=== PATIENT | male | born 1935 | race Caucasian/White ===

== ENCOUNTER → 2017-12-14 | Outpatient (CLI) | payer BC ==
[~2017-12-14] MED LIST: AMLO10 PO; AMOX500 PO; AMOX875 PO; ASPI325; ASPI81CH PO; ATOR40TA PO; CLON.1 PO; GLIP5 PO; HYDACE5 PO; LAVAP17G PO; LEVSOD150 PO; LEVSOD50 PO; LOSA25 PO; LOSHYD100 PO; METO25ER PO; SPIHYD; SPIR25 PO; Synthroid/Levo0.2 MG PO; Zofran Odt4 MG SL
[2017-12-14 17:01] LABS: BASOPHILS ABSOLUTE AUTO 0.07 K/mm3 (0.00-0.23); BASOPHILS PERCENT AUTO 1 % (0-2); EOSINOPHILS ABSOLUTE AUTO 0.04 K/mm3 (0.00-0.68); EOSINOPHILS PERCENT AUTO 0 % (0-6); Hematocrit 49.4 % (37.0-53.0); Hemoglobin 16.8 g/dL (13.5-17.5); IMMATURE GRAN ABSOLUTE AUTO 0.04 K/mm3 (0.00-0.10); IMMATURE GRAN PERCENT AUTO 0 % (0-1); LYMPHOCYTES ABSOLUTE AUTO 1.52 K/mm3 (0.84-5.20); LYMPHOCYTES PERCENT AUTO 17 % (21-46); MONOCYTES ABSOLUTE AUTO 0.67 K/mm3 (0.16-1.47); MONOCYTES PERCENT AUTO 7 % (4-13); Mean Corpuscular HGB 31.6 pg (26.0-34.0); Mean Corpuscular Volume 93 fL (80-100); Mean Platelet Volume 10.8 fL (9.1-12.4); NEUTROPHILS ABSOLUTE AUTO 6.73 K/mm3 (1.96-9.15); Platelet Count 263 K/mm3 (150-400); RDW Coefficient Variation 12.3 % (11.7-14.2); RDW Standard Deviation 42.1 fL (35.1-46.3); Red Blood Cell Count 5.31 M/mm3 (4.30-5.90); White Blood Cell Count 9.07 K/mm3 (4.00-11.30)
[2017-12-14 17:02] LABS: NEUTROPHILS PERCENT AUTO 7 % (41-73)
[2017-12-14 17:11] LABS: Albumin, Blood 3.9 g/dL (3.4-5.0); Albumin/Globulin Ratio 0.8 (0.8-1.8); Bilirubin, Total 0.9 mg/dL (0.1-1.0); Bun/Creatinine Ratio 12.7 (12.0-20.0); Calcium, Blood 9.6 mg/dL (8.5-10.1); Creatinine, Blood 1.42 mg/dL (0.60-1.20); Globulin, Blood 4.8 g/dL (2.2-4.0); Total Protein, Blood 8.7 g/dL (6.4-8.2)
== END ==
LOC: LAB SHORT 16:56
PROVIDERS: Physician Assistant
DX: R11.10 Vomiting, unspecified (principal)
CPT/HCPCS: 80053; 85025

== ENCOUNTER → 2017-12-30 | Outpatient (CLI) | payer BC ==
[2017-12-30 10:06] LABS: BASOPHILS ABSOLUTE AUTO 0.08 K/mm3 (0.00-0.23); BASOPHILS PERCENT AUTO 1 % (0-2); EOSINOPHILS ABSOLUTE AUTO 0.05 K/mm3 (0.00-0.68); EOSINOPHILS PERCENT AUTO 1 % (0-6); Hematocrit 48.3 % (37.0-53.0); Hemoglobin 16.2 g/dL (13.5-17.5); IMMATURE GRAN ABSOLUTE AUTO 0.03 K/mm3 (0.00-0.10); IMMATURE GRAN PERCENT AUTO 0 % (0-1); LYMPHOCYTES ABSOLUTE AUTO 1.59 K/mm3 (0.84-5.20); LYMPHOCYTES PERCENT AUTO 20 % (21-46); MONOCYTES ABSOLUTE AUTO 0.53 K/mm3 (0.16-1.47); MONOCYTES PERCENT AUTO 7 % (4-13); Mean Corpuscular HGB 31.7 pg (26.0-34.0); Mean Corpuscular HGB Conc 33.5 g/dL (31.5-36.5); Mean Corpuscular Volume 95 fL (80-100); Mean Platelet Volume 10.9 fL (9.1-12.4); NEUTROPHILS ABSOLUTE AUTO 5.82 K/mm3 (1.96-9.15); NEUTROPHILS PERCENT AUTO 72 % (41-73); Platelet Count 249 K/mm3 (150-400); Red Blood Cell Count 5.11 M/mm3 (4.30-5.90)
[2017-12-30 10:23] LABS: Albumin, Blood 3.9 g/dL (3.4-5.0); Albumin/Globulin Ratio 0.8 (0.8-1.8); Bun/Creatinine Ratio 11.7 (12.0-20.0); Calcium, Blood 9.4 mg/dL (8.5-10.1); Creatinine, Blood 1.45 mg/dL (0.60-1.20); Globulin, Blood 4.7 g/dL (2.2-4.0); Potassium, Blood 4.2 mmol/L (3.5-5.5); Total Protein, Blood 8.6 g/dL (6.4-8.2)
== END | disposition home or self-care (01) ==
LOC: LAB EV 10:01
PROVIDERS: Physician Assistant
DX: R10.84 Generalized abdominal pain (principal)
CPT/HCPCS: 80053; 83690; 85025

== ENCOUNTER 2018-04-14 07:40 | Inpatient (IN) | payer BC, MEDICARE ==
[~2018-04-14] VITALS: Ht 182.9 cm; Wt 95.2 kg
[~2018-04-14 07:40] MED LIST changes: -ASPI81CH PO; -ATOR40TA PO; -CLON.1 PO; -GLIP5 PO; -LEVSOD50 PO; -LOSA25 PO; -METO25ER PO; -SPIR25 PO; -Synthroid/Levo0.2 MG PO
[2018-04-14] MEDS ORDERED: CLON.1 PO (08:38)
[2018-04-14] MEDS ORDERED: Synthroid/Levo0.2 MG PO (08:38)
[2018-04-14] MEDS ORDERED: LEVSOD50 PO (08:38)
[2018-04-14] MEDS ORDERED: GLIP5 PO ×2 (08:39)
[2018-04-14 08:46] LABS: BASOPHILS ABSOLUTE AUTO 0.09 K/mm3 (0.00-0.23); BASOPHILS PERCENT AUTO 1 % (0-2); EOSINOPHILS ABSOLUTE AUTO 0.05 K/mm3 (0.00-0.68); EOSINOPHILS PERCENT AUTO 1 % (0-6); Hematocrit 42.4 % (37.0-53.0); Hemoglobin 13.3 g/dL (13.5-17.5); IMMATURE GRAN ABSOLUTE AUTO 0.04 K/mm3 (0.00-0.10); IMMATURE GRAN PERCENT AUTO 1 % (0-1); LYMPHOCYTES ABSOLUTE AUTO 1.29 K/mm3 (0.84-5.20); LYMPHOCYTES PERCENT AUTO 15 % (21-46); MONOCYTES ABSOLUTE AUTO 0.65 K/mm3 (0.16-1.47); MONOCYTES PERCENT AUTO 8 % (4-13); Mean Corpuscular HGB 29.7 pg (26.0-34.0); Mean Corpuscular HGB Conc 31.4 g/dL (31.5-36.5); Mean Corpuscular Volume 95 fL (80-100); Mean Platelet Volume 11.8 fL (9.1-12.4); NEUTROPHILS ABSOLUTE AUTO 6.58 K/mm3 (1.96-9.15); NEUTROPHILS PERCENT AUTO 76 % (41-73); Platelet Count 215 K/mm3 (150-400); RDW Standard Deviation 45.1 fL (35.1-46.3); Red Blood Cell Count 4.48 M/mm3 (4.30-5.90)
[2018-04-14 09:01] LABS: Albumin, Blood 3.3 g/dL (3.4-5.0); Albumin/Globulin Ratio 0.8 (0.8-1.8); Bun/Creatinine Ratio 25.7 (12.0-20.0); Calcium, Blood 8.9 mg/dL (8.5-10.1); Creatinine, Blood 1.44 mg/dL (0.60-1.20); Globulin, Blood 4.4 g/dL (2.2-4.0); Potassium, Blood 4.7 mmol/L (3.5-5.5); Total Protein, Blood 7.7 g/dL (6.4-8.2); Troponin I 0.046 ng/mL (0.000-0.040)
[2018-04-15 05:05] LABS: Albumin, Blood 2.9 g/dL (3.4-5.0); Anion Gap 10 mmol/L (6-16); Blood Urea Nitrogen 33 mg/dL (8-24); Bun/Creatinine Ratio 23.1 (12.0-20.0); CO2, Blood 28 mmol/L (21-32); Calcium, Blood 8.6 mg/dL (8.5-10.1); Chloride, Blood 101 mmol/L (98-108); Creatinine, Blood 1.43 mg/dL (0.60-1.20); Glomerular Filtration Rate 50 (60-); Glucose, Blood 148 mg/dL (70-99); Phosphorus, Blood 3.8 mg/dL (2.5-4.9); Potassium, Blood 3.8 mmol/L (3.5-5.5); Sodium, Blood 139 mmol/L (136-145)
[2018-04-16 06:09] LABS: Bun/Creatinine Ratio 22.2 (12.0-20.0); Calcium, Blood 9.1 mg/dL (8.5-10.1); Creatinine, Blood 1.58 mg/dL (0.60-1.20); Potassium, Blood 3.7 mmol/L (3.5-5.5)
[2018-04-16] MEDS ORDERED: ASPI81CH PO (08:45)
[2018-04-16] MEDS ORDERED: ATOR40TA PO (08:45)
[2018-04-16] MEDS ORDERED: LOSA25 PO (08:46)
[2018-04-16] MEDS ORDERED: SPIR25 PO (08:47)
[2018-04-16] MEDS ORDERED: METO25ER PO (08:47)
== END 2018-04-16 12:11 | disposition home or self-care (01) | DRG 291 ==
LOC: ER 07:40 → PCU 09:54 → MEDS 12:28 → PCU 12:30 → MEDS 04-15 17:58 → ENPENDDIS 04-16 08:00 → MEDS 04-16 12:11
PROVIDERS: Emergency Medicine; Family Medicine
PROC: 5A09357 Assistance with Respiratory Ventilation, Less than 24 Consecutive Hours, Continuous Positive Airway Pressure (ICD-10-PCS; principal; 2018-04-14)
DX: I13.0 Hypertensive heart and chronic kidney disease with heart failure and stage 1 through stage 4 chronic kidney disease, or unspecified chronic kidney disease (principal); J96.01 Acute respiratory failure with hypoxia; I50.21 Acute systolic (congestive) heart failure; N18.2 Chronic kidney disease, stage 2 (mild); E11.22 Type 2 diabetes mellitus with diabetic chronic kidney disease; I27.20 Pulmonary hypertension, unspecified; E03.9 Hypothyroidism, unspecified; E66.01 Morbid (severe) obesity due to excess calories; E78.5 Hyperlipidemia, unspecified; Z68.30 Body mass index [BMI] 30.0-30.9, adult
CPT/HCPCS: 36415; 71046; 71250; 80048; 80053; 80069; 82947; 83605; 83735; 83880; 84484; 85025; 87040; 93005; 93010; 94660; 94762; 96365; 96368; 96375; 99285; C8923; C9113; J0456; J0696; J1650; J1940; J2543; J7030; J7050; Q9957

== ENCOUNTER → 2018-11-17 | Outpatient (CLI) | payer OTHER ==
[~2018-11-17] MED LIST changes: +ASPI81CH PO; +ATOR40TA PO; +CLON.1 PO; +GLIP5 PO; +LEVSOD50 PO; +LOSA25 PO; +METO25ER PO; +SPIR25 PO; +Synthroid/Levo0.2 MG PO
[2018-11-20 12:09] LABS: M-SPIKE, % Not Observed % (Not Observed); PROTEIN,TOTAL,URINE 36.4 mg/dL (Not Estab.)
== END | disposition home or self-care (01) ==
LOC: LAB SHORT 10:15 → LAB 10:15 → LAB FUT 11-14 11:30
PROVIDERS: Internal Medicine Nephrology
DX: N18.3 Chronic kidney disease, stage 3 (moderate) (principal); D63.1 Anemia in chronic kidney disease; R80.9 Proteinuria, unspecified; N25.81 Secondary hyperparathyroidism of renal origin; E55.9 Vitamin D deficiency, unspecified; E78.00 Pure hypercholesterolemia, unspecified; R76.9 Abnormal immunological finding in serum, unspecified; R94.5 Abnormal results of liver function studies; R94.6 Abnormal results of thyroid function studies; D51.8 Other vitamin B12 deficiency anemias; D52.8 Other folate deficiency anemias; D50.9 Iron deficiency anemia, unspecified
CPT/HCPCS: 84156; 84166

== ENCOUNTER → 2018-11-19 | Outpatient (CLI) | payer OTHER ==
[2018-11-19 14:10] LABS: Protein, Urine Quantitative 25.9 mg/dL (0.0-11.9)
[2018-11-19 14:23] LABS: Creatinine, Urine Random 84.7 mg/dL (27.00-270.00)
[2018-11-19 14:26] LABS: Microalb/Creat Ratio UR, Rand 177.096 mg/g (0.000-30.000)
[2018-11-21 13:41] LABS: Creatinine Urine 85.3 mg/dL (27.00-270.00)
== END ==
LOC: LAB SHORT 10:50 → LAB 10:50
PROVIDERS: Internal Medicine Nephrology
DX: N18.3 Chronic kidney disease, stage 3 (moderate) (principal); D63.1 Anemia in chronic kidney disease; R80.9 Proteinuria, unspecified; N25.81 Secondary hyperparathyroidism of renal origin; E78.00 Pure hypercholesterolemia, unspecified; R76.9 Abnormal immunological finding in serum, unspecified; R94.5 Abnormal results of liver function studies; R94.6 Abnormal results of thyroid function studies; D51.8 Other vitamin B12 deficiency anemias; D52.8 Other folate deficiency anemias; D50.9 Iron deficiency anemia, unspecified; E55.9 Vitamin D deficiency, unspecified
CPT/HCPCS: 81050; 82043; 82570; 84156

== ENCOUNTER 2019-01-23 04:56 | Emergency (ER) | payer OTHER ==
[~2019-01-23] VITALS: Ht 182.9 cm; Wt 99.8 kg
[2019-01-23] MEDS ORDERED: TORSE20 PO (05:29)
[2019-01-23] MEDS ORDERED: ATOR40TA PO (05:29)
[2019-01-23 05:51] LABS: BASOPHILS ABSOLUTE AUTO 0.05 K/mm3 (0.00-0.23); BASOPHILS PERCENT AUTO 1 % (0-2); EOSINOPHILS ABSOLUTE AUTO 0.01 K/mm3 (0.00-0.68); EOSINOPHILS PERCENT AUTO 0 % (0-6); Hematocrit 32.4 % (37.0-53.0); Hemoglobin 10.5 g/dL (13.5-17.5); IMMATURE GRAN ABSOLUTE AUTO 0.08 K/mm3 (0.00-0.10); IMMATURE GRAN PERCENT AUTO 1 % (0-1); LYMPHOCYTES ABSOLUTE AUTO 0.73 K/mm3 (0.84-5.20); LYMPHOCYTES PERCENT AUTO 10 % (21-46); MONOCYTES ABSOLUTE AUTO 0.89 K/mm3 (0.16-1.47); MONOCYTES PERCENT AUTO 12 % (4-13); Mean Corpuscular HGB 31.3 pg (26.0-34.0); Mean Corpuscular HGB Conc 32.4 g/dL (31.5-36.5); Mean Corpuscular Volume 97 fL (80-100); Mean Platelet Volume 10.8 fL (9.1-12.4); NEUTROPHILS ABSOLUTE AUTO 5.67 K/mm3 (1.96-9.15); NEUTROPHILS PERCENT AUTO 76 % (41-73); Platelet Count 182 K/mm3 (150-400); RDW Coefficient Variation 13.2 % (11.7-14.2); Red Blood Cell Count 3.35 M/mm3 (4.30-5.90); White Blood Cell Count 7.43 K/mm3 (4.00-11.30)
[2019-01-23 06:10] LABS: Albumin, Blood 3.4 g/dL (3.4-5.0); Albumin/Globulin Ratio 0.9 (0.8-1.8); Bilirubin, Total 0.6 mg/dL (0.1-1.0); Bun/Creatinine Ratio 12.6 (12.0-20.0); Calcium, Blood 8.9 mg/dL (8.5-10.1); Creatinine, Blood 1.91 mg/dL (0.60-1.20); Globulin, Blood 3.9 g/dL (2.2-4.0); Total Protein, Blood 7.3 g/dL (6.4-8.2)
[2019-01-23 06:34] LABS: Source, Urine Clean Catch
[2019-01-23 06:44] LABS: Bilirubin, Urine Neg (Neg); Blood, Urine Neg (Neg); Glucose Qualitative, Urine 3+ (Neg); Ketones, Urine Neg (Neg); Leukocyte Esterase, Urine Neg (Neg); Nitrite, Urine Neg (Neg); Protein, Urine 2+ (Neg); Urobilinogen, Urine NORM (Normal)
[2019-01-23 06:53] LABS: Appearance, Urine Clear (Clear); Bacteria Not Seen /hpf; Color, Urine Yellow (P-Yellow); Red Blood Cells, Urine Not Seen /hpf (0-2); Squamous Epithelial Cells Not Seen /hpf (Few); White Blood Cells, Urine Rare /hpf (0-5)
[2019-01-23 06:56] LABS: CPK Creatine Kinase 68 U/L (39-308); Troponin I <0.015 ng/mL (0.000-0.040)
[2019-01-23 06:58] LABS: Thyroid Stimulating Hormone 0.116 uIU/mL (0.360-4.800)
[2019-01-23 07:37] LABS: Influenza A Negative (NEGATIVE); Influenza B Negative (NEGATIVE)
[2019-01-23] MEDS ORDERED: Zofran4 MG PO (08:43)
== END 2019-01-23 09:08 | disposition home or self-care (01) ==
LOC: ER 04:56
PROVIDERS: Emergency Medicine
DX: B34.9 Viral infection, unspecified (principal); E86.0 Dehydration; I48.91 Unspecified atrial fibrillation; I10 Essential (primary) hypertension; Z79.899 Other long term (current) drug therapy; Z79.82 Long term (current) use of aspirin
CPT/HCPCS: 36415; 71046; 80053; 81001; 82550; 83880; 84443; 84484; 85025; 87804; 93005; 93010; 96361; 96374; 99284-25; J2405; J7120

== ENCOUNTER 2019-01-28 15:51 | Observation (INO) | payer OTHER ==
[~2019-01-28] VITALS: Ht 182.9 cm; Wt 99.8 kg
[~2019-01-28 15:51] MED LIST changes: -ASPI81CH PO; +Aspirin EC81 MG PO; -SPIR25 PO; +TORSE20 PO; +Zofran4 MG PO
[2019-01-28 16:53] LABS: BASOPHILS ABSOLUTE AUTO 0.04 K/mm3 (0.00-0.23); BASOPHILS PERCENT AUTO 1 % (0-2); EOSINOPHILS ABSOLUTE AUTO 0.07 K/mm3 (0.00-0.68); EOSINOPHILS PERCENT AUTO 1 % (0-6); Hematocrit 33.6 % (37.0-53.0); Hemoglobin 10.8 g/dL (13.5-17.5); IMMATURE GRAN ABSOLUTE AUTO 0.04 K/mm3 (0.00-0.10); IMMATURE GRAN PERCENT AUTO 1 % (0-1); LYMPHOCYTES ABSOLUTE AUTO 2.09 K/mm3 (0.84-5.20); LYMPHOCYTES PERCENT AUTO 27 % (21-46); MONOCYTES ABSOLUTE AUTO 0.59 K/mm3 (0.16-1.47); MONOCYTES PERCENT AUTO 8 % (4-13); Mean Corpuscular HGB 31.5 pg (26.0-34.0); Mean Corpuscular HGB Conc 32.1 g/dL (31.5-36.5); Mean Corpuscular Volume 98 fL (80-100); Mean Platelet Volume 11.3 fL (9.1-12.4); NEUTROPHILS ABSOLUTE AUTO 5.01 K/mm3 (1.96-9.15); NEUTROPHILS PERCENT AUTO 64 % (41-73); Platelet Count 225 K/mm3 (150-400); RDW Coefficient Variation 13.5 % (11.7-14.2); RDW Standard Deviation 48.7 fL (35.1-46.3); Red Blood Cell Count 3.43 M/mm3 (4.30-5.90); White Blood Cell Count 7.84 K/mm3 (4.00-11.30)
[2019-01-28 17:14] LABS: Alanine Aminotransfer (ALT/SGP 26 U/L (12-78); Albumin, Blood 3.1 g/dL (3.4-5.0); Albumin/Globulin Ratio 0.6 (0.8-1.8); Alk Phos 115 U/L (50-136); Anion Gap 6 mmol/L (6-16); Aspartate Aminotrans (AST/SGOT 24 U/L (12-37); Bilirubin, Total 0.7 mg/dL (0.1-1.0); Blood Urea Nitrogen 46 mg/dL (8-24); Bun/Creatinine Ratio 19.3 (12.0-20.0); CO2, Blood 32 mmol/L (21-32); Calcium, Blood 8.9 mg/dL (8.5-10.1); Chloride, Blood 98 mmol/L (98-108); Creatinine, Blood 2.38 mg/dL (0.60-1.20); Glomerular Filtration Rate 28 (60-); Glucose, Blood 330 mg/dL (70-99); Potassium, Blood 4.1 mmol/L (3.5-5.5); Sodium, Blood 136 mmol/L (136-145); Total Protein, Blood 8.1 g/dL (6.4-8.2); Troponin I <0.015 ng/mL (0.000-0.040)
[2019-01-28] MEDS ORDERED: SPIR25 PO (19:26)
[2019-01-28] MEDS ORDERED: ONDA4 PO (19:27)
[2019-01-28] MEDS ORDERED: PANT40 PO (19:29)
[2019-01-28] MEDS ORDERED: TAMS.4ER PO (19:30)
[2019-01-28] MEDS ORDERED: CALC.25 PO (19:30)
[2019-01-29 04:55] LABS: BASOPHILS ABSOLUTE AUTO 0.02 K/mm3 (0.00-0.23); BASOPHILS PERCENT AUTO 0 % (0-2); EOSINOPHILS PERCENT AUTO 1 % (0-6); Hematocrit 30.5 % (37.0-53.0); Hemoglobin 9.9 g/dL (13.5-17.5); Mean Corpuscular HGB Conc 32.5 g/dL (31.5-36.5); Mean Corpuscular Volume 99 fL (80-100); Mean Platelet Volume 11.4 fL (9.1-12.4); Platelet Count 208 K/mm3 (150-400); RDW Coefficient Variation 13.4 % (11.7-14.2); RDW Standard Deviation 47.9 fL (35.1-46.3); Red Blood Cell Count 3.09 M/mm3 (4.30-5.90); White Blood Cell Count 8.32 K/mm3 (4.00-11.30)
[2019-01-29 04:58] LABS: IMMATURE GRAN ABSOLUTE AUTO 0.05 K/mm3 (0.00-0.10); IMMATURE GRAN PERCENT AUTO 1 % (0-1); LYMPHOCYTES ABSOLUTE AUTO 1.97 K/mm3 (0.84-5.20); LYMPHOCYTES PERCENT AUTO 24 % (21-46); MONOCYTES ABSOLUTE AUTO 0.65 K/mm3 (0.16-1.47); MONOCYTES PERCENT AUTO 8 % (4-13); NEUTROPHILS ABSOLUTE AUTO 5.53 K/mm3 (1.96-9.15); NEUTROPHILS PERCENT AUTO 67 % (41-73)
[2019-01-29 05:14] LABS: Bun/Creatinine Ratio 19.3 (12.0-20.0); Calcium, Blood 8.4 mg/dL (8.5-10.1); Creatinine, Blood 2.18 mg/dL (0.60-1.20); Potassium, Blood 4.3 mmol/L (3.5-5.5)
--- NOTE | 2019-01-29 07:36 | NUR ---
*SHIFT SUMMARY* PATIENT IS ALERT AND ORIENTED. CAME TO ROOM FROM ER VIA STRETCHER, ON ROOM AIR. PATIENT IS HARD OF HEARING. AT BEDSIDE. PT IS 1 ASSIST WITH WALKER. VITAL SIGNS STABLE. CALL LIGHT IN REACH. BED LOWERED AND LOCKED. PT SLEPT WELL THROUGHOUT THE NIGHT.
--- NOTE | 2019-01-29 18:19 | NUR ---
SHIFT SUMMARY PATIENT A&0 X4, 1 PA TO BATHROOM. IS AT THE BEDSIDE AN DOES A LOT OF HIS CARE. PATIENT DENIES ANY PAIN OR SOB THIS SHIFT. HAD AN EPISODE OF VOMITTING THIS MORNING. RN MEDICATED X1, HAS SINCE RESOLVED. POOR APPETITE. HAS NOT WANTED TO EAT MUCH. BOWEL CARE PROVIDED THIS SHIFT. NO ACUTE CHANGES. RN WILL CONTINUE TO MONITOR.
--- NOTE | 2019-01-30 05:54 | NUR ---
*SHIFT SUMMARY* PT IS ALERT AND ORIENTED. ON ROOM AIR. HAS PRODUCTIVE COUGH, YELLOW SOMETIMES GREENISH SPUTUM. PT IS A 1 ASSIST WITH FWW TO BATHROOM. AT BEDSIDE. PT HAS SOME INCONTINENCE THROUGHOUT THE NIGHT. USES CALL LIGHT APPROPRIATELY. PLAN IS FOR SPEECH TO EVALUATE PT TODAY. NO BM REPORTED FROM PT. VITAL SIGNS STABLE.
[2019-01-30] MEDS ORDERED: Augmentin 875-1 EACH PO (14:51)
--- NOTE | 2019-01-30 16:05 | NUR ---
DISCHARGE SUMMARY PATIENT A&O X3. ALL DISCHARGE INFORMATION REVIEWED WITH PATIENT AND HIS . MEDICATIONS FAXED TO [facility] IN [place]. NO IV ACCESS. ESCORTED OUT BY TRANSPORT SPECIALIST IN WHEELCHAIR. ALL BELONINGS IN HAND.
== END 2019-01-30 15:20 | disposition home or self-care (01) ==
LOC: ER 15:51 → MEDS 15:52
PROVIDERS: Nurse Practitioner Acute Care; Physician Assistant; ADMIT Hospitalist
DX: J69.0 Pneumonitis due to inhalation of food and vomit (principal); E11.65 Type 2 diabetes mellitus with hyperglycemia; I13.0 Hypertensive heart and chronic kidney disease with heart failure and stage 1 through stage 4 chronic kidney disease, or unspecified chronic kidney disease; E11.22 Type 2 diabetes mellitus with diabetic chronic kidney disease; I50.22 Chronic systolic (congestive) heart failure; N18.3 Chronic kidney disease, stage 3 (moderate); E03.9 Hypothyroidism, unspecified; E78.5 Hyperlipidemia, unspecified; Z79.899 Other long term (current) drug therapy; Z79.82 Long term (current) use of aspirin; Z79.84 Long term (current) use of oral hypoglycemic drugs; W19.XXXA Unspecified fall, initial encounter
CPT/HCPCS: 36415; 71046; 80048; 80053; 82947; 83605; 83735; 83880; 84145; 84484; 85025; 92610; 93005; 93010; 94640; 94760; 96361; 96365; 96367; 96372; 96375; 97162; 97530; 99285-25; G0378; J0696; J1650; J2405; J7030

== ENCOUNTER 2019-02-20 17:25 | Emergency (ER) | payer OTHER ==
[~2019-02-20] VITALS: Ht 182.9 cm; Wt 95.2 kg
[~2019-02-20 17:25] MED LIST changes: +Augmentin 875-1 EACH PO; +CALC.25 PO; +GLIP10 PO; +ONDA4 PO; +PANT40 PO; +SPIR25 PO; +TAMS.4ER PO
[2019-02-20 18:47] LABS: BASOPHILS ABSOLUTE AUTO 0.06 K/mm3 (0.00-0.23); BASOPHILS PERCENT AUTO 1 % (0-2); EOSINOPHILS ABSOLUTE AUTO 0.18 K/mm3 (0.00-0.68); EOSINOPHILS PERCENT AUTO 2 % (0-6); Hematocrit 36.8 % (37.0-53.0); Hemoglobin 11.9 g/dL (13.5-17.5); IMMATURE GRAN ABSOLUTE AUTO 0.08 K/mm3 (0.00-0.10); IMMATURE GRAN PERCENT AUTO 1 % (0-1); LYMPHOCYTES ABSOLUTE AUTO 2.54 K/mm3 (0.84-5.20); LYMPHOCYTES PERCENT AUTO 25 % (21-46); MONOCYTES ABSOLUTE AUTO 1.14 K/mm3 (0.16-1.47); MONOCYTES PERCENT AUTO 11 % (4-13); Mean Corpuscular HGB 31.5 pg (26.0-34.0); Mean Corpuscular HGB Conc 32.3 g/dL (31.5-36.5); Mean Corpuscular Volume 97 fL (80-100); Mean Platelet Volume 10.8 fL (9.1-12.4); NEUTROPHILS ABSOLUTE AUTO 6.09 K/mm3 (1.96-9.15); NEUTROPHILS PERCENT AUTO 60 % (41-73); Platelet Count 216 K/mm3 (150-400); RDW Coefficient Variation 14.4 % (11.7-14.2); RDW Standard Deviation 51.4 fL (35.1-46.3); Red Blood Cell Count 3.78 M/mm3 (4.30-5.90); White Blood Cell Count 10.09 K/mm3 (4.00-11.30)
[2019-02-20 20:08] LABS: Albumin, Blood 3.7 g/dL (3.4-5.0); Albumin/Globulin Ratio 0.8 (0.8-1.8); Bilirubin, Total 0.6 mg/dL (0.1-1.0); Bun/Creatinine Ratio 14.4 (12.0-20.0); Calcium, Blood 9.4 mg/dL (8.5-10.1); Creatinine, Blood 2.02 mg/dL (0.60-1.20); Globulin, Blood 4.8 g/dL (2.2-4.0); Potassium, Blood 3.9 mmol/L (3.5-5.5); Total Protein, Blood 8.5 g/dL (6.4-8.2)
[2019-02-24] MEDS ORDERED: METO10 PO (12:53)
== END 2019-02-20 21:20 | disposition left against medical advice (07) ==
LOC: ER 17:25
PROVIDERS: Physician Assistant
DX: R10.9 Unspecified abdominal pain (principal); Z53.20 Procedure and treatment not carried out because of patient's decision for unspecified reasons
CPT/HCPCS: 36415; 80053; 85025; 99283

== ENCOUNTER 2019-07-31 10:07 | Day surgery (SDC) | payer OTHER ==
[~2019-07-31] VITALS: Ht 180.3 cm; Wt 100.0 kg
[~2019-07-31 10:07] MED LIST changes: +METO10 PO
--- NOTE | 2019-07-31 12:03 | NUR ---
07/31/19 1203 Alia Rivas SIMETHICONE USED DURING PROCEDURE.
== END 2019-07-31 12:36 | disposition home or self-care (01) ==
LOC: ORSCSDS 10:07
PROVIDERS: Internal Medicine Gastroenterology
PROC: 0DB48ZX Excision of Esophagogastric Junction, Via Natural or Artificial Opening Endoscopic, Diagnostic (ICD-10-PCS; principal; 2019-07-31 11:15)
PROC: 0DB68ZX Excision of Stomach, Via Natural or Artificial Opening Endoscopic, Diagnostic (ICD-10-PCS; principal; 2019-07-31 11:15)
DX: R11.2 Nausea with vomiting, unspecified (principal); K29.70 Gastritis, unspecified, without bleeding; E03.9 Hypothyroidism, unspecified; E11.22 Type 2 diabetes mellitus with diabetic chronic kidney disease; I12.9 Hypertensive chronic kidney disease with stage 1 through stage 4 chronic kidney disease, or unspecified chronic kidney disease; N18.9 Chronic kidney disease, unspecified; Z79.4 Long term (current) use of insulin; Z79.82 Long term (current) use of aspirin; Z79.899 Other long term (current) drug therapy
CPT/HCPCS: 82947; 88305; 88342; J2704; J7120

== ENCOUNTER 2019-08-20 16:04 | Emergency (ER) | payer OTHER ==
[~2019-08-20] VITALS: Ht 180.3 cm; Wt 86.2 kg
[2019-08-20 16:36] LABS: BASOPHILS ABSOLUTE AUTO 0.08 K/mm3 (0.00-0.23); BASOPHILS PERCENT AUTO 1 % (0-2); EOSINOPHILS ABSOLUTE AUTO 0.18 K/mm3 (0.00-0.68); EOSINOPHILS PERCENT AUTO 2 % (0-6); Hematocrit 36.1 % (37.0-53.0); Hemoglobin 11.9 g/dL (13.5-17.5); IMMATURE GRAN ABSOLUTE AUTO 0.06 K/mm3 (0.00-0.10); IMMATURE GRAN PERCENT AUTO 1 % (0-1); LYMPHOCYTES ABSOLUTE AUTO 2.36 K/mm3 (0.84-5.20); LYMPHOCYTES PERCENT AUTO 28 % (21-46); MONOCYTES ABSOLUTE AUTO 0.76 K/mm3 (0.16-1.47); MONOCYTES PERCENT AUTO 9 % (4-13); Mean Corpuscular HGB 32.8 pg (26.0-34.0); Mean Corpuscular Volume 99 fL (80-100); NEUTROPHILS ABSOLUTE AUTO 4.92 K/mm3 (1.96-9.15); NEUTROPHILS PERCENT AUTO 59 % (41-73); Platelet Count 228 K/mm3 (150-400); RDW Coefficient Variation 13.2 % (11.7-14.2); RDW Standard Deviation 48.6 fL (35.1-46.3); Red Blood Cell Count 3.63 M/mm3 (4.30-5.90); White Blood Cell Count 8.36 K/mm3 (4.00-11.30)
[2019-08-20 16:52] LABS: International Normalized Ratio 0.97; Prothrombin Time Results 10.3 Sec (9.7-11.5)
[2019-08-20] MEDS ORDERED: PANT40 PO (16:53)
[2019-08-20] MEDS ORDERED: VITAMIN D35000 UNI1 PO (16:54)
[2019-08-20] MEDS ORDERED: CYAN500 PO (16:54)
[2019-08-20 16:59] LABS: Troponin I <0.015 ng/mL (0.000-0.040)
[2019-08-20 17:09] LABS: Alanine Aminotransfer (ALT/SGP 24 U/L (12-78); Albumin, Blood 3.9 g/dL (3.4-5.0); Albumin/Globulin Ratio 0.9 (0.8-1.8); Alk Phos 156 U/L (50-136); Anion Gap 6 mmol/L (6-16); Aspartate Aminotrans (AST/SGOT 32 U/L (12-37); Bilirubin, Total 0.7 mg/dL (0.1-1.0); Blood Urea Nitrogen 33 mg/dL (8-24); Bun/Creatinine Ratio 16.8 (12.0-20.0); CO2, Blood 30 mmol/L (21-32); Calcium, Blood 9.5 mg/dL (8.5-10.1); Chloride, Blood 99 mmol/L (98-108); Creatinine, Blood 1.96 mg/dL (0.60-1.20); Globulin, Blood 4.2 g/dL (2.2-4.0); Glomerular Filtration Rate 35 (60-); Glucose, Blood 174 mg/dL (70-99); Potassium, Blood 4.3 mmol/L (3.5-5.5); Sodium, Blood 135 mmol/L (136-145); Total Protein, Blood 8.1 g/dL (6.4-8.2)
== END 2019-08-20 17:50 | disposition home or self-care (01) ==
LOC: ER 16:04
PROVIDERS: Emergency Medicine
DX: S09.90XA Unspecified injury of head, initial encounter (principal); F03.90 Unspecified dementia, unspecified severity, without behavioral disturbance, psychotic disturbance, mood disturbance, and anxiety; I10 Essential (primary) hypertension; Z79.899 Other long term (current) drug therapy; Z79.82 Long term (current) use of aspirin; W01.10XA Fall on same level from slipping, tripping and stumbling with subsequent striking against unspecified object, initial encounter
CPT/HCPCS: 70450; 71045; 80053; 84484; 85025; 85610; 90471; 90714; 93005; 93010; 96374; 99285-25; J2405

== ENCOUNTER 2020-01-08 22:04 | Inpatient (IN) | payer OTHER ==
[~2020-01-08] VITALS: Ht 182.9 cm; Wt 93.2 kg
[~2020-01-08 22:04] MED LIST changes: +CYAN500 PO; +VITAMIN D35000 UNI1 PO
[2020-01-08] MEDS ORDERED: METO10 PO (22:16)
[2020-01-08 22:35] LABS: BASOPHILS ABSOLUTE AUTO 0.06 K/mm3 (0.00-0.23); BASOPHILS PERCENT AUTO 1 % (0-2); EOSINOPHILS ABSOLUTE AUTO 0.19 K/mm3 (0.00-0.68); EOSINOPHILS PERCENT AUTO 2 % (0-6); Hematocrit 33.7 % (37.0-53.0); IMMATURE GRAN ABSOLUTE AUTO 0.09 K/mm3 (0.00-0.10); IMMATURE GRAN PERCENT AUTO 1 % (0-1); LYMPHOCYTES ABSOLUTE AUTO 2.05 K/mm3 (0.84-5.20); LYMPHOCYTES PERCENT AUTO 26 % (21-46); MONOCYTES ABSOLUTE AUTO 0.75 K/mm3 (0.16-1.47); MONOCYTES PERCENT AUTO 10 % (4-13); Mean Corpuscular HGB 31.8 pg (26.0-34.0); Mean Corpuscular HGB Conc 32.6 g/dL (31.5-36.5); Mean Corpuscular Volume 97 fL (80-100); Mean Platelet Volume 10.2 fL (9.1-12.4); NEUTROPHILS ABSOLUTE AUTO 4.66 K/mm3 (1.96-9.15); NEUTROPHILS PERCENT AUTO 60 % (41-73); Platelet Count 262 K/mm3 (150-400); RDW Coefficient Variation 13.4 % (11.7-14.2); RDW Standard Deviation 47.9 fL (35.1-46.3); Red Blood Cell Count 3.46 M/mm3 (4.30-5.90)
[2020-01-08 22:55] LABS: Alanine Aminotransfer (ALT/SGP 30 U/L (12-78); Albumin, Blood 3.7 g/dL (3.4-5.0); Albumin/Globulin Ratio 0.9 (0.8-1.8); Alk Phos 140 U/L (50-136); Anion Gap 9 mmol/L (6-16); Aspartate Aminotrans (AST/SGOT 16 U/L (12-37); Bilirubin, Total 0.5 mg/dL (0.1-1.0); Blood Urea Nitrogen 38 mg/dL (8-24); Bun/Creatinine Ratio 18.3 (12.0-20.0); CO2, Blood 29 mmol/L (21-32); Calcium, Blood 9.4 mg/dL (8.5-10.1); Chloride, Blood 100 mmol/L (98-108); Creatinine, Blood 2.08 mg/dL (0.60-1.20); Globulin, Blood 4.3 g/dL (2.2-4.0); Glomerular Filtration Rate 32 (60-); Glucose, Blood 137 mg/dL (70-99); Potassium, Blood 3.8 mmol/L (3.5-5.5); Sodium, Blood 138 mmol/L (136-145); Troponin I <0.015 ng/mL (0.000-0.040)
--- NOTE | 2020-01-09 05:52 | NUR ---
SHIFT SUMMARY PT NEW ER ADMIT THIS SHIFT (329), PT AMBULATED TO BED FROM STRETCHER (HEAVY 2 ASSIST), PT WAS VERY TIRED ON ARRIVAL- STATES HE NORMALLY IS INDEP W/FWW AT HOME, NO ACCUTE CHANGES SINCE ASSUMING CARE, NO C/O ANY KIND, (KAEL) AT BEDSIDE SINCE ADMIT & IS VERY ACTIVE IN PTS CARE, PT SLEEPING AT THIS TIME, CALL LIGHT IN REACH, WILL CONT TO MONITOR UNTIL REPORT GIVEN TO DAY RN.
--- NOTE | 2020-01-09 16:41 | NUR ---
Met with physician and . pt resting. Review events leading up to hospitalization. very fatigued and distraught. Review of recent and pst falls and his steady decline and confussion. Review of his needs. He is needing more care at home and is providing care. stated she has reviewed hospice cre for him. Physician is concered for future traumatic falls and inablity to rehab. Plan is to have PT/OT and speech see him as they did in past admissions to assit with FAST scoring and apporpriate level of care. Review of rossi status with and risks of CPR and life support. Advised her to speak with family and to reach a plan of care that she has support for and respects her ed and orthodoxy and love for her . Will support her through decision. Plan is home saturday after eval with home health or hospice and follow up and transition to hospice. pt high risk for readmission and repeat falls. states they own their home advised her to rally the troups to help with caregiveing and to support her and consider hiring some of her friends ans partime caregivers.
--- NOTE | 2020-01-09 18:06 | NUR ---
SHIFT SUMMARY PT IS A/O X 1-2 WITH BASELINE CONFUSION. REPORTS A HX OF FREQUNET FALLS AT HOME. NEUROS REMAIN AT BASELINE. PHYSICAL THERAPY COMPLETED EVAL WITH PT TODAY. AFTER MEETING WITH THE DOCTOR AND THE PALLIATIVE CARE NURSE THE PLAN IS FOR THE PT TO GO HOME WITH HIS POSSIBLY UNDER HOSPICE CARE. THE IS AT THE BEDSIDE AND HAS BEEN FOR MOST OF THE DAY. PT IS ABLE TO MAKE HIS NEEDS KNOWN IF ASKED BUT DOES NOT CONSISTENLY USE THE CALL LIGHT, HIS HOWEVER DOES CALL IF NEEDED. PT IS RESTING IN BED EATING DINNER WATCHING TV.
--- NOTE | 2020-01-10 04:55 | NUR ---
SHIFT SUMMARY PT HAS HAD NO ACUTE CHANGES THIS SHIFT, HAS SLEPT SINCE ASSUMING CARE, ARROUSES EASILY WHEN RECEIVING CARE, NO COMPLAINTS OR INDICATIONS OF DISCOMFORT, AT BEDSIDE T/O SHIFT, VERY INVOLVED IN PTS CARE, PT IS SLEEPING AT THIS TIME CALL LIGHT IN REACH, WILL CONT TO MONITOR UNTIL REPORT GIVEN TO DAY RN.
--- NOTE | 2020-01-10 15:57 | NUR ---
SHIFT SUMMARY PT IS A/O X 1-2 AT BASELINE WITH NO C/O PAIN. HE HAS BEEN MORE CONFUSED AT TIMES TODAY WITH INCREASED AGITATION. THE DOCTOR WAS NOTIFIED AND GAVE ORDERS REFLECTED ON THE MAR. THE HAS REMAINED AT THE BEDSIDE THROUGHOUT THE DAY AND IS VERY HELPFUL. PER THE DOCTOR THE PLAN REMAINS FOR HIM TO GO HOME ON HOSPICE. HE IS UP TO THE RECLINER AND WAS ABLE TO AMBULATE TO THE TOILET WITH A FWW AND GAIT BELT BUT HE HAS A VERY HARD TIME FOLLOWING DIRECTIONS. PT IS ABLE TO MAKE HIS NEEDS KNOWN WHEN ASKED. IS AT HIS SIDE NOW AND CALL LIGHT IS IN REACH.
--- NOTE | 2020-01-11 04:39 | NUR ---
SHIFT SUMMARY- PT. CONFUSED T/O THE SHIFT, W/O AGITATION. TEMP OF 100.8 AT THE START OF THE SHIFT. MEDICATED W/TYLENOL PER EMAR. TEMP WNL T/O THE REST OF THE NIGHT. AT THE BEDSIDE THE ENTIRE SHIFT. ASSISTED W/CARE OF PT. PT. SPENT THE EVENING IN BED, REPOSITIONED FOR COMFORT AND ATTENDS CHANGE DONE PRN. SLEPT WELL DURING THE NIGHT, NO APPARENT DISTRESS NOTED. PLAN FOR D/C HOME ON HOSPICE. CALL LIGHT WITHIN REACH AND SIDE RAILS UP X2. WILL CONT TO MONITOR.
--- NOTE | 2020-01-11 14:06 | NUR ---
Pal Care visit per request of RN and /family. Pt in hospital bed with hob elevated t/o my visit. He was not responsive/awakened by voice or touch. He does not appear agitated but does appear sl restless at this time. Pt using attends for elimination. does not feel he could be safely transferred to [facility] currently. requested assist with AD/POLST completion. Albert' Cousin is also present for my entire visit with [facility]. Explained that unless pt was alert and oriented to give direction that we could not complete the AD at this time. Gave info on [place] State Law and our policy on identifying his medical decision maker and that she would be his POA for HC unless she deferred those decisions to another person. Pt is currently not able to communicate with us and has hx of dementia with lack of decision making ability for some time now. and cousin confirm that they would like pt's code status changed. POLST form completed with full explanation of each area as we went. Family request DNR and comfort measures at this time. THey confrim that they do not want any more testing done and do not want any artificially adminitstered hydration or nutrition at this time. would like to take her home with hospice care/support. She has no preference of agency, only the agency that is available for visit at the earliest this week. Pt would need gurney transport home and also a hospital bed. Attends vs indwelling catheter discussed. may have difficulty moving pt for change of attends. Pt's cousin and his are nearby and can come help in an emergency but [facility] will be the only regular 24hr cg at present. Hospice services discussed at length. was not aware that their visits are intermittent. We explored hospice services out of the home but in the end, confirms she would like to try home care. Report given to RN, CM and EFM outdoor emergency care technician after my visit and to Dr Tracy Seals by phone/VM left. POLST completed and signed by , awaiting Dr valdez for completion. Will cont to follow for advanced care planning as indicated/requested.
--- NOTE | 2020-01-11 22:09 | NUR ---
PT. APPEARS TO BE RESTING COMFORTABLY IN BED. NO APPARENT DISTRESS NOTED. A BEDSIDE. DENIES ANY NEEDS AT THIS TIME. CALL LIGHT WITHIN REACH AND SIDE RAILS UP X3. WILL CONT TO MONITOR.
--- NOTE | 2020-01-11 22:13 | NUR ---
DURING MOUTH CARE PT. VOMITED MODERATE AMOUNT OF YELLOW SUBSTANCE. PT. REMAINS CONFUSED NOT AWAKE. PT. WAS SITTING UPRIGHT DURING VOMITING EPISODE. ORAL CARE DONE AND LINENS CHANGED. PT. REPOSITIONED FOR COMFORT AND ATTENDS CHANGE DONE. REMAINS AT BEDSIDE. PT. RESTING COMFORTABLY IN BED, NO APPARENT DISTRESS NOTED. CALL LIGHT WITHIN REACH AND SIDE RAILS UP X2. WILL CONT TO MONITOR.
--- NOTE | 2020-01-12 02:08 | NUR ---
PT. REPOSITIONED FOR COMFORT. NOTED PT. VERY WARM TO THE TOUCH AND AN INCREASE IN SECRETIONS. NOTIFIED PHYSICIAN. RECEIVED NEW ORDERS(SEE MAR).
--- NOTE | 2020-01-12 05:24 | NUR ---
SHIFT SUMMARY- PT. ON COMFORT CARE. ALL SCHEDULED MEDS HELD THIS SHIFT, PT. UNABLE TO TAKE PO MEDS. PT. NOTED TO HAVE INCREASE SECRETIONS T/O THE NIGHT WELL FEVER OF 103. TREATED WITH ATROPINE DROPS AND TYLENOL PER EMAR, WITH MINIMAL RELIEF. PT. UNABLE TO TOLERATE ORAL CARE. VOMITING OCCURS WITH EVERY ATTEMPT TO SUCTION OR PERFORM MOUTH CARE. PT. REPOSITIONED Q2HR AND PRN. ATTENDS IN PLACE, VOIDED OFTEN DURING THE NIGHT. HAS BEEN AT AT BEDSIDE T/O THE NIGHT, VERY INVOLVED IN CARE. CALL LIGHT WITHIN REACH AND SIDE RAILS UP X2. WILL CONT TO MONITOR.
--- NOTE | 2020-01-12 07:35 | NUR ---
PATIENT RESTING IN BED. HAS GONE HOME BUT WILL RETURN.
--- NOTE | 2020-01-12 10:05 | NUR ---
COMFORT CARE VISIT. CASE CONFERENCED WITH RN AND DR AFTER VISIT. NO FAMILY PRESENT AT THIS TIME. PT HAD EPISODE OF N/V THIS AM PER RN NOTES. HE IS SUPINE IN BED WITH HOB UP. HE IS UNRESPONSIVE TO VOICE OR TOUCH. RESPIRATORY RATE IS 36-40/MIN AND AUDIBLE UPPER AIRWAY SECRETIONS HEARD FROM DOOR WAY. SKIN WARM, DIAPHORETIC. DISCUSSED MEDICATIONS PER EMAR WITH RN. RECOMMENDED DOSE OF ROXICODONE SOLN, ATROPINE GTTS AND TYLENOL MN PER EMAR. T/C TO DR. RUANO OBTAINED TO DC PO AND IV MEDS. PT IS UNABLE TO SWALLOW AND HAS NO IV SITE. HAS BEEN VISITING BUT LEFT FOR A BIT. RN REPORTS PLAN IS FOR TRANSFER HOME WITH HOSPICE TOMORROW. PT APPEARS TO BE MORE ACTIVELY DYING AT THIS TIME. WILL REASSESS IN AM AND REPORT TO FAMILY/CAREMANAGERS RE: PROCEEDING WITH DC PLAN FOR TRANSFER HOME OR ALLOWING PT TO REMAIN IN PLACE. DISCUSSED ALL OF ABOVE WITH RN AND DR Tracy SIMS. TIME.
--- NOTE | 2020-01-12 13:49 | NUR ---
FAMILY IS AT THE BEDSIDE
--- NOTE | 2020-01-12 17:02 | NUR ---
MARGARITA BEARD RESPIRATIONS NOTED. FAMILY AT THE BEDSIDE
--- NOTE | 2020-01-12 17:11 | NUR ---
PATIENT AT 17:05 ON 01/12/2020. FAMILY AT THE BEDSIDE. VERIFIED BY INFORMATION SERVICES VICE PRESIDENT SALLY. DR. SIMS NOTIFIED AT 17:12. PALLIATIVE CARE NOTIFIED AND IN THE ROOM AT THIS TIME.
--- NOTE | 2020-01-12 18:07 | NUR ---
Received call from rn charge Sally with report Pt has . This RN arrived to Pt's room with family at bedside. Offered codolences and emotional support. Offered therapeutic listening. Family has chosen [facility] in [place]. Family requests for transportation to be arranged later after other family members have arrived to pay their respects. No other concerns reported at this time. Family expresses appreciation of visit. Spoke to rn charge Sally and reported family's choice of homes. Palliative Care will remain available.
--- NOTE | 2020-01-12 19:23 | NUR ---
PT. . AWAITING FOR [facility] TO ARRIVE. FAMILY AT BEDSIDE. NO CONCERNS FROM FAMILY AT THIS TIME.
== END 2020-01-12 17:05 | DRG 83 ==
LOC: ER 22:04 → MEDS 22:05
PROVIDERS: Emergency Medicine; ADMIT Family Medicine
DX: S06.5X9A Traumatic subdural hemorrhage with loss of consciousness of unspecified duration, initial encounter (principal); F01.51 Vascular dementia, unspecified severity, with behavioral disturbance; N18.4 Chronic kidney disease, stage 4 (severe); E11.22 Type 2 diabetes mellitus with diabetic chronic kidney disease; Z98.52 Vasectomy status; Z79.82 Long term (current) use of aspirin; K21.9 Gastro-esophageal reflux disease without esophagitis; N40.0 Benign prostatic hyperplasia without lower urinary tract symptoms; Z66 Do not resuscitate; Z51.5 Encounter for palliative care; W18.30XA Fall on same level, unspecified, initial encounter; Y93.9 Activity, unspecified; Y92.010 Kitchen of single-family (private) house as the place of occurrence of the external cause; I12.9 Hypertensive chronic kidney disease with stage 1 through stage 4 chronic kidney disease, or unspecified chronic kidney disease; R11.0 Nausea; S06.329A Contusion and laceration of left cerebrum with loss of consciousness of unspecified duration, initial encounter; R40.20 Unspecified coma
CPT/HCPCS: 70450; 71046; 80053; 82947; 84484; 85025; 93005; 93010; 96374; 96375; 96376; 97116; 97162; 99285-25; A9270; A9270-GY; G0378; J1815; J2405; J3010